=== PATIENT | female | born 1960 | race Two or more races ===

== ENCOUNTER 2018-12-02 19:28 | Emergency (ER) | payer SELFPAY ==
[~2018-12-02] VITALS: Ht 170.2 cm; Wt 89.3 kg
[~2018-12-02 19:28] MED LIST: AMLO-147; HYDR25TA6; METO-53
[2018-12-02 19:30] VITALS: Ht 170.2 cm; Wt 89.3 kg
[2018-12-02] MEDS ORDERED: LIDOCAINE/MYLANTA 40 ML BTL PO STA (19:40)
[2018-12-02] MEDS ORDERED: SOD CHLORIDE 0.9% 1,000 ML IV STA (19:40)
[2018-12-02] MEDS ORDERED: BELLADONNA/PHENOBARBITAL TAB PO STA (19:40)
[2018-12-02] MEDS ORDERED: FAMOTIDINE 20 MG INJ IV STA (19:40)
[2018-12-02] MEDS ORDERED: ONDANSETRON INJ 8 MG in DEXTROSE 5% 50 ML IV STA (19:40)
--- NOTE | 2018-12-02 21:33 | ERD ---
ER Documentation Chief Complaint Chief Complaint C/O GENERALIZED UPPER AP W/ VOMITING AND DIARRHEA X2 DAYS HPI This is a 57-year-old female with a past medical history of hypertension who recently got back from the [facility] on Tuesday who is presenting with fever, chills, waxing and waning general sharp cramping and aching abdominal pain, nausea with a few episodes of nonbilious nonbloody vomiting in addition to multiple episodes of loose watery brown nonbloody diarrhea. The patient reports feeling generally unwell with fever and chills starting on Tuesday. The nausea, vomiting and diarrhea started 1 or 2 days later. The patient does not endorse any constipation. He does not endorse she does not report any dysuria or hematuria or urgency or frequency. The patient has had no headache or vision changes. The patient does not endorse neck or back pain. The patient denies lightheadedness or dizziness. The patient has had no chest pain or trouble breathing. The patient has had no focal deficits. The patient has had no weakness or numbness or tingling to the face or extremities. ROS All systems reviewed and are negative except as per history of present illness. Medications Home Meds Reported Medications Hydrochlorothiazide (Hydrochlorothiazide) 25 Mg Tablet 01/20/13 Amlodipine Besylate* (Amlodipine Besylate*) 10 Mg Tablet 01/20/13 Metoprolol (Lopressor) 50 Mg Tablet 01/20/13 Allergies Allergies: Coded Allergies: codeine (Verified Allergy, Unknown, VOMITING/RASH, 12/02/18) PMhx/Soc History of Surgery: Yes (C/SECTION X 1, KIDNEY STENT) Anesthesia Reaction: No Hx Neurological Disorder: No Hx Respiratory Disorders: No Hx Cardiac Disorders: Yes (HTN) Hx Psychiatric Problems: No Hx Miscellaneous Medical Probl: No Hx Alcohol Use: No Hx Substance Use: No Hx Tobacco Use: No Smoking Status: Never smoker FmHx Family History: No diabetes Physical Exam Vitals Vital Signs Date Temp Pulse Resp B/P (MAP) Pulse Ox O2 O2 Flow FiO2 Time Delivery Rate 12/02/18 98.3 64 18 143/80 98 19:30 (101) Physical Exam Const: No apparent distress, well-developed, well-nourished Head: Normocephalic, Atraumatic Eyes: Normal Conjunctiva. Extraocular movements intact. Pupils equal, round and reactive to light ENT: Normal External Ears, Nose and Mouth. Neck: Full range of motion. No meningismus. Resp: Clear to auscultation bilaterally, No wheezes, rales or rhonchi Cardio: Regular rate and rhythm. No murmurs, rubs or gallops Abd: Soft, non tender, non distended. Normal bowel sounds Skin: No petechiae or rashes Back: No midline tenderness. No CVA tenderness Ext: No cyanosis, or edema Neur: Awake and alert, oriented 4. Cranial nerves intact. No facial droop. Normal strength, sensation and coordination. Psych: Normal Mood and Affect Result Diagram: 12/02/18200312/02/182003 Results 24 hrs Laboratory Tests Test 12/02/18 20:04 White Blood Count 8.6 10^3/ul Red Blood Count 4.80 10^6/ul Hemoglobin 13.3 g/dl Hematocrit 41.4 % Mean Corpuscular Volume 86.3 fl Mean Corpuscular Hemoglobin 27.7 pg Mean Corpuscular Hemoglobin Concent 32.1 g/dl Red Cell Distribution Width 14.9 % Platelet Count 180 10^3/UL Mean Platelet Volume 12.0 fl Immature Granulocytes % 0.100 % Neutrophils % % Segmented Neutrophils % (Manual) 48 % Band Neutrophils % (Manual) 9 % Lymphocytes % % Lymphocytes % (Manual) 40 % Monocytes % % Monocytes % (Manual) 2 % Eosinophils % % Eosinophils % (Manual) 1 % Basophils % % Nucleated Red Blood Cells % 0.0 /100WBC Immature Granulocytes # 0.010 10^3/ul Neutrophils # 10^3/ul Neutrophils # (Manual) 4.2 10^3/ul Band Neutrophils # 0.7 10^3/ul Lymphocytes (Manual) 3.4 10^3/ul Lymphocytes # 10^3/ul Monocytes # 10^3/ul Monocytes # (Manual) 0.1 10^3/ul Eosinophils # 10^3/ul Basophils # 10^3/ul Nucleated Red Blood Cells # 10^3/ul Platelet Estimate NORMAL Urine Color SHASTA Urine Clarity CLOUDY Urine pH 5.0 Urine Specific [place] 1.018 Urine Ketones NEGATIVE mg/dL Urine Nitrite NEGATIVE mg/dL Urine Bilirubin NEGATIVE mg/dL Urine Urobilinogen NEGATIVE mg/dL Urine Leukocyte Esterase 2+ Mitchel/ul Urine Microscopic RBC 4 /HPF Urine Microscopic WBC 34 /HPF Urine Squamous Epithelial Cells MODERATE /HPF Urine Bacteria FEW /HPF Urine Mucus MANY /HPF Urine Hemoglobin 1+ mg/dL Urine Glucose NEGATIVE mg/dL Urine Total Protein 3+ mg/dl Sodium Level 141 mmol/L Potassium Level 3.8 mmol/L Chloride Level 103 mmol/L Carbon Dioxide Level 27 mmol/L Anion Gap 11 Blood Urea Nitrogen 8 mg/dl Creatinine 0.98 mg/dl Est Glomerular Filtrat Rate mL/min 58 mL/min Glucose Level 127 mg/dl Calcium Level 9.5 mg/dl Total Bilirubin 0.0 mg/dl Direct Bilirubin 0.00 mg/dl Indirect Bilirubin 0.0 mg/dl Aspartate Amino Transf (AST/SGOT) 57 IU/L Alanine Aminotransferase (ALT/SGPT) 55 IU/L Alkaline Phosphatase 95 IU/L Total Protein 8.7 g/dl Albumin 4.2 g/dl Globulin 4.50 g/dl Albumin/Globulin Ratio 0.93 Lipase 111 U/L Current Medications Medications Dose Sig/Mahad Start Time Status Last (Trade) Ordered Route PRN Stop Time Admin Dose Reason Admin Sodium 1,000 ml @ Q1H STAT 12/02/18 DC 12/02/18 Chloride 1,000 mls/hr IV 19:40 20:17 12/02/18 20:39 Ondansetron 54 ml @ ONCE STAT 12/02/18 DC 12/02/18 HCl 8 200 mls/hr IV 19:40 20:32 mg/Dextrose 12/02/18 19:56 Famotidine 20 mg ONCE STAT 12/02/18 DC 12/02/18 (Pepcid Iv) IV 19:40 20:17 12/02/18 19:42 40 ml ONCE STAT 12/02/18 DC 12/02/18 Miscellaneous PO 19:40 20:17 Medication 12/02/18 19:42 (Gi Cocktail (2)) Belladonna/ 2 tab ONCE STAT 12/02/18 DC 12/02/18 Phenobarbital PO 19:40 20:17 () 12/02/18 19:42 Procedures/MDM MDM The patient's presentation warrants further investigation. Previous medical records, if available, were reviewed. LABS The patient's laboratory testing was obtained and reviewed. No emergent treatment was required unless described below. CBC: No leukocytosis. There is a 9% bandemia, which does not meet criteria for a systemic inflammatory response. No E/o anemia or thrombocytopenia CMP: No E/o severe acidosis or alkalosis or renal failure or liver disease or diabetic ketoacidosis Urine: E/o acute infection with hematuria TREATMENT/DISPOSITION The patient symptoms are concerning for possible gastroenteritis. The patient's urinalysis does reveal urinary tract infection. It is unclear if the patient's urinary tract infection could lead to inflammatory changes causing diarrhea or if the diarrhea caused a urinary tract infection. That said, I do intend to treat with antibiotics. The patient's vital signs are unremarkable. The patient does have a mild bandemia, but she does not meet criteria for a systemic inflammatory response syndrome. I do not feel the patient is septic and I do not feel the patient requires a full septic workup. The patient presents with abdominal pain. The patient does not have any evidence of peritonitis. The patient does not have clinical symptoms concerning for mesenteric ischemia or ischemic colitis. The patient reports epigastric pain. Gastritis versus GERD versus PUD are possibilities, though the patient did not have any tenderness on my exam. The patient does not have right upper quadrant tenderness, and I have low suspicion for gallstones, cholecystitis or biliary colic. The patient does not have left upper quadrant tenderness. I have low suspicion for pancreatitis. The patient does not have any right lower quadrant tenderness, or periumbilical tenderness. I have low suspicion for appendicitis. The patient does not have suprapubic tenderness. I have decreased suspicion for cystitis. The patient does not have any left lower quadrant tenderness, and I have low suspicion for diverticulosis or diverticulitis. The patient does not have any flank tenderness. The patient does not have gross hematuria. I have decreased suspicion for nephrolithiasis or renal colic. The patient does not have any palpable pulsatile mass or severe abdominal pain radiating to the back. I have low suspicion for aortic aneurysm, dissection or rupture. The patient was treated with IV fluids, Zofran, Pepcid and a GI cocktail. Upon reevaluation of the patient, symptoms have improved. No emergent diagnoses were identified. At this time, I feel that the patient stable for discharge. The patient was instructed to follow-up with a primary care physician in 1-3 days. The patient will be given strict precautions with which to return to the emergency department. Prescriptions: Zofran, Keflex, Pepcid The patient's blood pressure was elevated at greater than 120/80 while in the emergency department. The patient was otherwise stable with no evidence of hypertensive urgency or emergency. The patient does not require admission for blood pressure control. I have discussed with the patient the risks of hypertension. I have instructed the patient to return to the ER for any new or worsening symptoms including chest pain, shortness of breath, headache, blurred vision, confusion, nausea, vomiting or LOC. I have advised the patient to follow up with the primary care physician for outpatient monitoring and treatment for hypertension in 1-3 days. Disclaimer: Inadvertent spelling and grammatical errors are likely due to EHR/dictation software use and do not reflect on the overall quality of patient care. Note that the electronic time recorded on this note does not necessarily reflect the actual time of the patient encounter. Departure Diagnosis: Primary Impression: Urinary tract infection Urinary tract infection type: acute cystitis Hematuria presence: with hematuria Qualified Codes: N30.01 - Acute cystitis with hematuria Additional Impressions: Epigastric abdominal pain Nausea & vomiting Vomiting type: unspecified Vomiting Intractability: non-intractable Qualified Codes: R11.2 - Nausea with vomiting, unspecified Diarrhea Diarrhea type: unspecified type Qualified Codes: R19.7 - Diarrhea, unspecified Bandemia Condition: RUTH Duke MD Dec 02, 2018 21:33
[2018-12-02] MEDS ORDERED: FAMO20TA18 PO (21:38)
[2018-12-02] MEDS ORDERED: CEPH-443 PO (21:38)
[2018-12-02] MEDS ORDERED: ONDA4TAB8 PO (21:38)
[2018-12-02 21:51] VITALS: BP 181/75; PULSE 49; RESP 18
== END 2018-12-02 21:59 | disposition home or self-care (01) ==
LOC: E/R 19:28
DX: R10.10 Upper abdominal pain, unspecified (principal); N30.01 Acute cystitis with hematuria; I10 Essential (primary) hypertension; D72.825 Bandemia
CPT/HCPCS: 36415; 80053; 81001; 83690; 85025; 96374; 96375; 99284; J2405; J7030

== ENCOUNTER 2019-06-03 15:56 | Emergency (ER) | payer OTHER ==
[~2019-06-03] VITALS: Ht 165.1 cm; Wt 90.0 kg
[~2019-06-03 15:56] MED LIST changes: +CEPH-443 PO; +FAMO20TA18 PO; +ONDA4TAB8 PO
[2019-06-03 16:03] VITALS: Ht 165.1 cm; Wt 90.0 kg
[2019-06-03] MEDS ORDERED: NICARDipine HCL 30 MG CAPSULE PO ONE (16:30)
--- NOTE | 2019-06-03 16:45 | ERD ---
ER Documentation Chief Complaint Chief Complaint FEELS LIGHT HEADED X 3 DAYS, X 3 DAYS, HTN HPI Patient is a 58-year-old female with hypertension who presents feeling lightheaded. The symptoms started yesterday. The patient has no slurred speech or one-sided weakness. She denies pain. She is taking her blood pressure medicines as directed. Her primary doctor is Dr. Mcnamara. Upon review of old medical records this is the patient's third visit to the ER since 2012. ROS All systems reviewed and are negative except as per history of present illness. Medications Home Meds Active Scripts Famotidine* (Famotidine*) 20 Mg Tablet, 20 MG PO BID, #30 TAB Prov:RUTH KELSEY MD 12/02/18 Ondansetron Hcl* (Zofran*) 4 Mg Tablet, 4 MG PO Q6H for NAUSEA AND/OR VOMITING, #30 TAB Prov:RUTH KELSEY MD 12/02/18 Cephalexin* (Keflex*) 500 Mg Capsule, 500 MG PO BID for 7 Days, CAP Prov:RUTH KELSEY MD 12/02/18 Reported Medications Hydrochlorothiazide (Hydrochlorothiazide) 25 Mg Tablet 01/20/13 Amlodipine Besylate* (Amlodipine Besylate*) 10 Mg Tablet 01/20/13 Metoprolol (Lopressor) 50 Mg Tablet 01/20/13 Allergies Allergies: Coded Allergies: codeine (Verified Allergy, Unknown, VOMITING/RASH, 12/02/18) PMhx/Soc History of Surgery: Yes (C/SECTION X 1, KIDNEY STENT) Anesthesia Reaction: No Hx Neurological Disorder: No Hx Respiratory Disorders: No Hx Cardiac Disorders: Yes (HTN) Hx Psychiatric Problems: No Hx Miscellaneous Medical Probl: No Hx Alcohol Use: Yes (occassionally) Hx Substance Use: No Hx Tobacco Use: Yes (occassionally) Smoking Status: Light tobacco smoker FmHx Family History: diabetes Physical Exam Vitals Vital Signs Date Temp Pulse Resp B/P (MAP) Pulse Ox O2 O2 Flow FiO2 Time Delivery Rate 06/03/19 98.1 58 18 181/100 99 16:37 (127) 06/03/19 98.1 62 18 214/109 99 16:03 (144) Physical Exam Const: No acute distress Head: Atraumatic Eyes: Normal Conjunctiva ENT: Normal External Ears, Nose and Mouth. Neck: Full range of motion. No meningismus. Resp: Clear to auscultation bilaterally Cardio: Regular rate and rhythm, no murmurs Abd: Soft, non tender, non distended. Normal bowel sounds Skin: No petechiae or rashes Back: No midline or flank tenderness Ext: No cyanosis, or edema Neur: Awake and alert, cranial nerves II through XII are intact, strength is 5 out of 5 in all 4 extremities, no slurred speech Psych: Normal Mood and Affect Results 24 hrs Laboratory Tests Test 06/03/19 16:24 Bedside Glucose 93 mg/dL Current Medications Medications Dose Sig/Mahad Start Time Status Last (Trade) Ordered Route PRN Stop Time Admin Dose Reason Admin Nicardipine 30 mg ONCE ONCE 06/03/19 DC 06/03/19 HCl PO 16:30 16:28 (Cardene) 06/03/19 16:45 Procedures/MDM EKG read by me: Rate/Rhythm: Sinus bradycardia rate of 55 Intervals: Normal Impression: Sinus bradycardia without ischemia Accu-Chek is normal. Smoking Cessation Therapy: Pt. was lectured for greater than 3 minutes on the health risks of continued smoking and the benefits of cessation. Patient is a 58-year-old female with hypertension who presents with acute hypertension. The patient was given Cardene for elevated blood pressure. I believe this is likely the cause of her symptoms. Her neurologic exam is normal and I believe the risk of doing a CT scan of the brain outweigh the benefits. EKG shows no signs of ischemia. Accu-Chek is normal and I doubt hyper or hypoglycemia. I spoke with Dr. Mcnamara who will see the patient in his office this week for repeat blood pressure check and management. The patient can return for any worsening symptoms. Departure Diagnosis: Primary Impression: Hypertension Hypertension type: essential hypertension Qualified Codes: I10 - Essential (primary) hypertension Condition: Fair Patient Instructions: High Blood Pressure (Hypertension) Referrals: NETO MCNAMARA MD Additional Instructions: Call your primary care doctor TOMORROW for an appointment during the next [address] [place].Tell the paralegal secretary that you were referred from this facility.See the doctor sooner or return here if your condition worsens before your appointment time. ABDI MCARTHUR MD Jun 03, 2019 16:45
[2019-06-03 17:24] VITALS: BP 148/82; PULSE 60; RESP 24
== END 2019-06-03 17:26 | disposition home or self-care (01) ==
LOC: E/R 15:56
DX: I10 Essential (primary) hypertension (principal); F17.210 Nicotine dependence, cigarettes, uncomplicated
CPT/HCPCS: 82962; 93005